=== PATIENT | female | born 1990 ===

== ENCOUNTER 2017-03-16 00:34 | Inpatient (IN) | payer OTHER ==
--- NOTE | 2017-03-16 01:48 | OBADHP ---
Datetime: 03/16/2017 01:40 Admit Comment, IP Provider: Gross ROM, admit and start augumentation of labor Start iv antibiotics f or GBS coverage Extremities - PN: Normal Abdomen - PN: Abnormal Breast - PN: Normal Lungs - PN: Normal Thyroid - PN: Normal Neurologic - PN: Normal HEENT - PN: Normal General - PN: Normal Presentation-Admit: cephalic FHR - Baseline A Provider: 150's Amniotic Fluid Color, Provider: Clear Membranes, Provider: Ruptured Contraction Comments Provider: irregular Comments, ACOG Physical Exam: Abd gravid NT fundus at term Pool Provider: Positive Nitrazine Provider: Positive IP Hx Assessment: The History has been Reviewed and is Current IP Chief Complaint: Suspected ruptured membranes NICHD Variability Prov Fetus A: Moderate 6-25bpm NICHD Accel Fetus A IP Provider: 10X10 NICHD Decel Fetus A IP Provider: None Dilatation, Provider: 1cm Effacement, Provider: 50 Genitourinary Exam: Normal DTRs - PN: Normal IP Adm Impression: Postterm, intrauterine ; Ruptured Membranes IP Admit Plan: Admit to unit; Initiate labor augmentation protocol
[2017-03-16] MEDS ORDERED: AMPicillin 2 GM in Sodium Chloride 0.9% 100 ML IVPB STA (01:49)
[2017-03-16 01:50] VITALS: BMI 34.3
[2017-03-16] MEDS: Lactated Ringer's 1,000 ML IV SCH ×3 (02:00→14:00)
[2017-03-16 03:35] LABS: BASO % 0.2 % (0.0-2.0); EOS # 0.1 K/uL (0.0-0.7); EOS % 0.6 % (0.0-4.0); HEMOGLOBIN 12.2 g/dL (12.0-16.0); LYMPH # 1.6 K/uL (1.0-4.3); MEAN CORPUSCULAR HEMOGLOBIN 29.6 pg (27.0-31.0); MEAN CORPUSCULAR HGB CONC 33.7 g/dL (33.0-37.0); MEAN PLATELET VOLUME 8.1 fl (7.2-11.7); MONO # 1.1 K/uL (0.0-0.8); MONO % 8.8 % (0.0-10.0); NEUT # 9.6 K/uL (1.8-7.0); NEUT % 77.4 % (50.0-75.0); NRBC % 0.1 % (0.0-0.0); RBC 4.13 Mil/uL (3.80-5.20); WHITE BLOOD COUNT 12.5 K/uL (4.8-10.8)
[2017-03-16] MEDS: AMPicillin 1 GM in Sodium Chloride 0.9% 100 ML IVPB SCH ×4 (06:44→18:45)
[2017-03-16] MEDS ORDERED: Fentanyl/Bupivacaine HCl 250 ML EPI ONE (08:51)
[2017-03-16] MEDS ORDERED: Bupivacaine HCl 0.25% PF (10 ml) Inj ONE (09:00)
[2017-03-16] MEDS ORDERED: Oxytocin 30 UNITS in Sodium Chloride 0.9% 500 ML IV ONE ×2 (14:30→22:15)
[2017-03-16] MEDS ORDERED: Oxycodone/Acetaminophen 5/325 mg Tab PO PRN (21:35)
--- NOTE | 2017-03-16 21:35 | OBDS ---
DELIVERY PERSONNEL Camp Coordinator: Ma. Lindsey Frank RN Anesthesiologist: Dontae Lerma MD MATERNAL INFORMATION Delivery Anesthesia: Epidural Estimated Blood Loss (ml): 250 Maternal Complications: None Provider Comments: Delivered a living baby girl appears term cried spontaneously 9/9 AF light mec but end-stage, placenta complete and intact Episiotomy repaired as above without any complication s Uterus contracted well No complications LABOR SUMMARY EDC: 03/12/2017 00:00 No. Babies in Womb: 1 LABOR INFORMATION Reason for Induction: Not Applicable Complete Dilatation: 03/16/2017 17:35 Cervical Ripening Agents: Cervidil Group B Beta Strep: Positive Steroids Given: None Reason Steroids Not Administered: Not Applicable MEMBRANES Membranes Rupture Method: Spontaneous Rupture of Membranes: 03/15/2017 23:15 Length of Rupture (hrs): 21.87 Amniotic Fluid Color: Clear Amniotic Fluid Amount: Moderate Amniotic Fluid Odor: Normal STAGES OF LABOR Stage 2 hrs: 3 Stage 2 min: 32 VAGINAL DELIVERY Episiotomy: Median Laceration Extension: First Degree Laceration Type: Perineal Laceration Repair: Yes Laceration Repair Note: episiotomy repaired with 2-0 chromic interrupted for deep and continously fo r vagina and perineum wilthout any complications Sponge Count Correct: Yes Sharps Count Correct: Yes Count Comment: count correct and verified by RN CSECTION DELIVERY Primary Indication: N/A Secondary Indication: N/A CSection Incision: N/A Uterine Closure: N/A BABY A INFORMATION Infant Delivery Date/Time: 03/16/2017 21:07 Method of Delivery: Vaginal Born in Route : No : N/A Forceps: N/A Vacuum Extraction: N/A Shoulder Dystocia : No SHOULDER DYSTOCIA BABY A Delivery Date/Time: 03/16/2017 21:07 PRESENTATION/POSITION BABY A Presentation: Cephalic PLACENTA INFORMATION BABY A Placenta Method of Delivery: Spontaneous Placenta Status: Delivered SCORES BABY A Heart Rate 1 min: >100 bpm Resp Effort 1 min: Good Cry Reflex Irritability 1 min: Cough or Sneeze or Pulls Away Muscle Tone 1 min: Active Motion Color 1 min: Body [place], Extremities Blue Resuscitation Effort 1 min: Tactile Stimulation SCORE 1 MIN: 9 Heart Rate 5 min: >100 bpm Resp Effort 5 min: Good Cry Reflex Irritability 5 min: Cough or Sneeze or Pulls Away Muscle Tone 5 min: Active Motion Color 5 min: Body [place], Extremities Blue Resuscitation Effort 5 min: N/A SCORE 5 MIN: 9 INFORMATION BABY A Gestational Age at Delivery: 40.0 Gestational Status: Term Outcome : Liveborn Condition : Stable Infant Sex: Female CORD INFORMATION BABY A No. Cord Vessels: 3 Infant Suction: Mouth; Nose
[2017-03-17 07:12] LABS: HEMOGLOBIN 10.5 g/dL (12.0-16.0); MEAN CELL VOLUME 89.9 fl (81.0-99.0); MEAN CORPUSCULAR HEMOGLOBIN 29.4 pg (27.0-31.0); MEAN CORPUSCULAR HGB CONC 32.6 g/dL (33.0-37.0); RBC 3.57 Mil/uL (3.80-5.20); RED CELL DISTRIBUTION WIDTH 15.1 % (11.5-14.5); WHITE BLOOD COUNT 19.8 K/uL (4.8-10.8)
--- NOTE | 2017-03-17 12:07 | OBPPN ---
Datetime: 03/17/2017 12:03 PP Pain Prov: Within normal limits PP Nausea Prov: Denies PP Flatus Prov: Yes PP BM Prov: No PP Breasts Prov: Normal PP Heart Prov: Normal PP Lungs Prov: Normal PP Abdomen/Uterus Prov: Normal PP Lochia Prov: Normal PP Vulva/Perineum Prov: Normal PP CVA Tenderness Prov: Normal PP Extremities Prov: Normal PP Progress Prov: Normal PP Impression Prov: Normal progression PP Plan Prov: Continue present management PP Progress Note Prov: Asked to see Dr Cornejo's pt. She feels fine A: S/P day 1/Rubella Non Immune PLAN: aniticapte discharge in AM MMR prior to discharge Vital Signs Provider PP: Reviewed; Within Normal Limits
--- NOTE | 2017-03-18 10:55 | OBPPN ---
Datetime: 03/18/2017 10:52 PP Pain Prov: Within normal limits PP Pain Prov comment: no SOB, chest or leg pains PP Nausea Prov: Denies PP Flatus Prov: Yes PP Nausea Prov comment: voiding well PP Breasts Prov: Normal PP Lungs Prov: Normal PP Abdomen/Uterus Prov: Abnormal PP Lochia Prov: Normal PP Vulva/Perineum Prov: Abnormal PP CVA Tenderness Prov: Normal PP Extremities Prov: Normal PP C/S Incision Prov: Not Applicable PP Progress Prov: Normal PP Comments Phys Exam Prov: breast not engorged NT, abd soft ND, fundus firm below the umb. NT Perin eum repaired Ext no calf tenderness PP Impression Prov: Normal progression PP Plan Prov: Discharge PP Progress Note Prov: D/C home with instructions and folllow up office IP PP Procedures: None Vital Signs Provider PP: Reviewed
--- NOTE | 2017-03-18 10:58 | OBDCSUM ---
Datetime: 03/18/2017 09:30 Discharged to, Provider: Home Follow up at, Provider: Dr. Heller Disch Instr Activity: Bedrest; May be up to bathroom; May be up for meals; May Shower Disch Instr Diet: Regular Discharge Instructions, Provider: Routine instructions given Discharge Diagnosis, Provider: Term Delivered Discharge Time: 03/18/2017 09:30 Follow up in weeks, Provider: 4-6 weeks Disch Referrals: None Contraception discussed, Prov: Yes Disch Activity Restrictions: No exercising; No lifting; No driving; Minimize walking; Minimize stair -climbing; No sexual activity; Nothing in vagina - [place], tampons, douche Discharge Comment, Provider: continue PNC vit and iron Contraception after Delivery: Undecided
[2017-03-18 18:46] VITALS: BP 121/62; PULSE 61; RESP 20; TEMP 97.6; O2SAT 100
== END 2017-03-18 14:25 | disposition home or self-care (01) | DRG 775 ==
LOC: H.EROB2 00:34 → H.L&D 01:50 → H.OB/GYN 23:55
PROVIDERS: ADMIT Specialist; ATTEND Specialist
PROC: 0W8NXZZ Division of Female Perineum, External Approach (ICD-10-PCS; principal; 2017-03-16)
PROC: 10E0XZZ Delivery of Products of Conception, External Approach (ICD-10-PCS; 2017-03-16)
PROC: 4A1HXCZ Monitoring of Products of Conception, Cardiac Rate, External Approach (ICD-10-PCS; 2017-03-16)
DX: O70.0 First degree perineal laceration during delivery (principal); Z37.0 Single live birth; Z3A.40 40 weeks gestation of pregnancy